=== PATIENT | male | born 1990 | race Caucasian/White ===

== ENCOUNTER 2018-12-29 15:09 | Emergency (ER) | payer OTHER, SELFPAY ==
[2018-12-29 15:17] VITALS: BP 117/63; PULSE 90; RESP 18; TEMP 37.2; O2SAT 95
[2018-12-29] MEDS: TET,DIPH,PERTUSS(ACELL),VAC/PF 0.5 ML SYRINGE IM (15:20)
[2018-12-29] MEDS: LIDOCAINE 1% (PF) 6 ML INJ (15:20)
--- NOTE | 2018-12-29 15:22 | ED_ITS ---
HPI - Wound/Laceration General Chief Complaint: Wound/Laceration Stated Complaint: Cut hand at work Time Seen by Provider: 12/29/18 15:13 Source: patient Mode of arrival: Ambulatory Limitations: no limitations History of Present Illness HPI narrative: 28-year-old male here for evaluation of a cut to his right hand. Patient states that it occurred while he was at work just prior to arrival. He was using a razor blade when he the bleed broke or his hand slipped cutting the base of his right thumb. Does not know when his last tetanus shot was. Covered it with a bandage prior to arrival. Related Data Allergies Allergy/AdvReac Type Severity Reaction Status Date / Time No Known Drug Allergies Allergy Verified 12/29/18 15:19 Review of Systems Constitutional Constitutional: Denies fever(s) Cardiovascular Cardiovascular: Denies chest pain and Denies dyspnea Respiratory Respiratory: Denies dyspnea Gastrointestinal Gastrointestinal: Denies abdominal pain Musculoskeletal Musculoskeletal: Denies tingling Integumentary/Breasts Comments: Cut to right hand Neurologic Neurologic: Denies tingling and Denies paresthesias Hematologic/Lymphatic Hematologic/Lymphatic: Denies easy bleeding and Denies easy bruising Patient History Medical History Patient denies medical problems (Acute) Social History Smoking Status: Current every day smoker tobacco type: cigarettes Substance Use Type: does not use Exam Initial Vital Signs Initial Vital Signs: Vital Signs Temperature 98.9 F 12/29/18 15:17 Pulse Rate 90 12/29/18 15:17 Respiratory Rate 18 12/29/18 15:17 Blood Pressure 117/63 12/29/18 15:17 Pulse Oximetry 95 12/29/18 15:17 Const General: cooperative, well groomed and No acute distress Orientation: alert and awake [facility] Head: normal to inspection and normocephalic Cardio Pulses: radial pulses present on the right Skin Other: 8 cm laceration to the palmar aspect of the thumb and the thenar eminence. Neuro Other: Sensation is intact to the medial lateral dorsum and volar aspect of the right thumb. Extrem Other: Patient able to flex and extend at the IP joint of the right thumb. He has limited range of motion at the MCP joint however patient states this is not new. He stated that this is not related to the incident that brought him in today. Psych Appearance: grossly normal and well kempt Procedures Laceration Repair Laceration 1: Site: hand Side (If applicable): right Size (cm): 7 Description: linear Depth: involves muscle layer Local Anesthetic: lidocaine 1% Amount of anesthesia used (mL): 6 Pre-repair: wound explored, irrigated extensively and deep structures intact Skin layer closed with: nylon Size (cm): 4-0 Number of sutures: 8 Technique: simple, interrupted Subcutaneous layer closed with: chromic gut Size: 5-0 Number of sutures: 5 Technique: simple, interrupted Orthopedic Splinting/Casting Injury #1: Side: right Upper Extremity Injury Location: hand Upper Extremity Immobilizer: thumb spica (Removable) Post splinting neuro exam: intact Post splinting vascular exam: intact Placed by: Nursing Course Orders Ordered: Discontinued Medications Bacitracin (Bacitracin) 1 applic TOP NOW ONE Stop: 12/29/18 16:16 Diphtheria/Tetanus/Acell Pertussis (Adacel) 0.5 ml IM .ONCE ONE Stop: 12/29/18 15:16 Last Admin: 12/29/18 15:20 Dose: 0.5 ml Documented by: SCANAPO Lidocaine HCl (Xylocaine 1% (Pf)) 6 ml INJ NOW ONE Stop: 12/29/18 15:17 Last Admin: 12/29/18 15:20 Dose: 6 ml Documented by: SCANAPO Vital Signs Vital signs: Vital Signs - 8 hr 12/29/18 15:17 Temperature 98.9 F Pulse Rate 90 Respiratory Rate 18 Blood Pressure 117/63 Pulse Oximetry 95 MDM - Wound/Laceration MDM Narrative Medical decision making narrative: Patient was neurovascularly intact prior to intervention here in the ER. He did have limited range of motion of the MCP joint of his right thumb but the patient states this is not new and what he is experiencing today is baseline for him. He could flex and extend at the IP joint. The wound was irrigated. It was closed as described above. His tetanus was updated. He was given return precautions and follow-up instructions. He was given care instructions. Thumb spica splint was given to him for soft tissue rest given the location of the wound. He expressed understanding and agreement with plan. Discharge Plan Departure Patient Disposition: Home Clinical Impression: Laceration Instructions: DI for Laceration Repair Activity Restrictions/Additional Instructions: Leave the bandage that was placed on you today in place for the next 24 hours. After that you can take it off. You can shower like normal after that. You can use soap and water and wash your hands like normal. Do not soak your hand in anything. Do not scrub the area over the stitches. The stitches do need to be removed in 7-10 days. You can follow up in the walk-in clinic for this. If you need help finding a primary provider you can call the health human resources assistant manager here at the [facility] at [phone]. Return to the emergency department for any new or worsening symptoms. You can take Tylenol and/or ibuprofen for any discomfort. You can also ice the area.
--- NOTE | 2018-12-29 15:58 | PC.NURSE ---
Irrigated hand with chlorahexidine soap and steril water.
[2018-12-29] MEDS: BACITRACIN OINT 0.9 GM PCKT 1 APPLIC TOP (16:22)
== END 2018-12-29 16:29 | disposition home or self-care (01) ==
PROVIDERS: Emergency Provider Emergency Medicine
DX: S61.411A Laceration without foreign body of right hand, initial encounter (principal); W26.8XXA Contact with other sharp object(s), not elsewhere classified, initial encounter; Y99.0 Civilian activity done for income or pay; Z23 Encounter for immunization
CPT/HCPCS: 12002; 29280; 90471; 99282; 99283; 90715